=== PATIENT | female | born 1985 | race Caucasian/White ===

== ENCOUNTER 2018-03-21 12:10 | Emergency (ER) | payer OTHER ==
[2018-03-21] MEDS: IBUPROFEN 600 MG TAB PO (12:43)
== END 2018-03-21 13:29 | disposition home or self-care (01) ==
LOC: FTE 12:10
DX: S90.02XA Contusion of left ankle, initial encounter (principal); S50.11XA Contusion of right forearm, initial encounter; S50.12XA Contusion of left forearm, initial encounter; W19.XXXA Unspecified fall, initial encounter; Y92.009 Unspecified place in unspecified non-institutional (private) residence as the place of occurrence of the external cause
CPT/HCPCS: 73590; 99283-25

== ENCOUNTER 2018-03-24 09:04 | Emergency (ER) | payer OTHER | END 2018-03-24 11:19 | disposition home or self-care (01) | LOC: FTE 09:04 | DX: S93.402A Sprain of unspecified ligament of left ankle, initial encounter (principal); X58.XXXA Exposure to other specified factors, initial encounter; Y92.9 Unspecified place or not applicable | CPT/HCPCS: 73610; 99283-25 ==

== ENCOUNTER 2018-12-06 16:35 | Emergency (ER) | payer MEDICAID, OTHER ==
[2018-12-06] MEDS: METHOCARBAMOL 750 MG TAB PO (19:49)
[2018-12-06] MEDS: KETOROLAC 30 MG INJ IM (19:50)
[2018-12-06] MEDS: DEXAMETHASONE 10 MG/ML 1 ML INJ IM (19:50)
== END 2018-12-06 19:59 | disposition home or self-care (01) ==
LOC: FTE 16:35
DX: M54.6 Pain in thoracic spine (principal)
CPT/HCPCS: 81025; 96372; 99284-25